=== PATIENT | female | born 1945 | race Caucasian/White ===

== ENCOUNTER 2020-09-21 11:26 | Outpatient (REF) | payer MEDICARE, SELFPAY ==
--- NOTE | ~2020-09-21 | MM_ITS ---
EXAMINATION: MM SCREENING DIGITAL BREAST TOMOSYNTHESIS, BILATERAL CLINICAL INFORMATION: Screening. Asymptomatic. The lifetime risk of breast cancer based on the Tyrer-Cuzick Model is 3%. COMPARISON: Mammography: 03/03/2019, 06/09/2016 TECHNIQUE: Digital breast tomosynthesis is performed in both the craniocaudal and mediolateral oblique views along with computer-aided detection (CAD). Synthesized 2D images are generated from the tomosynthesis. FINDINGS: There are scattered areas of fibroglandular density (ACR BI-RADS breast composition Category b). There are no significant masses, abnormal calcifications, or other abnormalities. Parenchymal pattern is similar to prior exams. No significant changes. MM/MM tomosynthesis screening BI IMPRESSION: No mammographic evidence of malignancy. ASSESSMENT: BI-RADS 1: Negative RECOMMENDATION: Routine annual mammography screening. This patient's information was entered into a reminder system with a target due date for their next mammogram.
== END 2020-09-21 11:27 | disposition home or self-care (01) ==
LOC: HO.MAMMO 11:26
PROVIDERS: Visit Provider Nurse Practitioner Family
DX: Z12.31 Encounter for screening mammogram for malignant neoplasm of breast (principal)
CPT/HCPCS: 77063; 77067

== ENCOUNTER 2020-10-26 09:57 | Outpatient (REF) | payer MEDICARE, SELFPAY ==
--- NOTE | ~2020-10-26 | MM_ITS ---
EXAMINATION: BONE DENSITOMETRY CLINICAL INDICATION: Other specified disorders of bone density. COMPARISON: Baseline BD dated 11/02/2009. TECHNIQUE: Using a [employer] DXA System (software version: 13.1) manufactured by [employer] dual-energy x-ray absorptiometry was performed of the lumbar spine and left hip. The images are of good technical quality. Summary results are attached. FINDINGS: AP SPINE L1-L4: Current: BMD 0.748 g/cm2, Z-score -1.2, T-score -3.6, osteoporosis, 16.6% decrease from baseline (<5% change is not significant). Baseline: BMD 0.897 g/cm2. LEFT FEMUR, NECK: Current: BMD 0.691 g/cm2, Z-score -0.2, T-score -2.5, osteoporosis. Baseline: BMD 0.789 g/cm2. LEFT FEMUR, TOTAL: Current: BMD 0.684 g/cm2, Z-score -0.4, T-score -2.6, osteoporosis, 11.5% decrease from baseline (<5% change is not significant). Baseline: BMD 0.773 g/cm2. IDENTIFIED RISK FACTORS: Menopause, tobacco use (current smoker), history of fracture (adult). HISTORY OF FRACTURE: Coccyx. MEDICATIONS: Calcium supplements or multivitamin. MM/XR DEXA axial skeleton IMPRESSION: 1. DIAGNOSIS: Osteoporosis based on the lowest T-score value of -3.6 in the lumbar spine applying World Health Organization criteria. 2. 10-YEAR FRACTURE RISK PREDICTION, FRAX: Major osteoporotic fracture (clinical spine, forearm, hip or shoulder) 42.5%. Hip fracture 32.4%. 3. Treatment Recommendations: NOF guidelines recommend consideration for treatment in postmenopausal women and men age 50 and older presenting with the following: -A hip or vertebral (clinical or morphometric) fracture. -T-score less than or equal to -2.5 at the femoral neck or spine after appropriate evaluation to exclude secondary causes. -Low bone mass at the hip or spine and a 10-year fracture probability by FRAX of greater than or equal to 3% for hip fracture or greater than or equal to 20% for major osteoporotic fracture based on the [place] adapted WHO algorithm. 4. Other Recommendations: All treatment decisions require clinical judgment and consideration of individual patient factors, including patient preferences, comorbidities, previous drug use, risk factors not captured in the FRAX model (e.g. frailty, falls, vitamin D deficiency, increased bone turnover, interval significant decline in bone density) and possible under or overestimation of fracture risk by FRAX. Additional medical evaluation for secondary cause of low bone mineral density may be appropriate. FUTURE SCAN RECOMMENDATION: People with diagnosed cases of osteoporosis or at high risk for fracture should have regular bone mineral density tests. For patients eligible for Medicare, routine testing is allowed once every 2 years. The testing frequency can be increased to one year for patients who have rapidly progressing disease, those who are receiving or discontinuing medical therapy to restore bone mass, or have additional risk factors.
== END 2020-10-26 09:58 | disposition home or self-care (01) ==
LOC: HO.MAMMO 09:57
PROVIDERS: PCP Nurse Practitioner Family; Visit Provider Nurse Practitioner Family
DX: Z13.820 Encounter for screening for osteoporosis (principal); M85.80 Other specified disorders of bone density and structure, unspecified site; Z78.0 Asymptomatic menopausal state; F17.200 Nicotine dependence, unspecified, uncomplicated; Z79.899 Other long term (current) drug therapy
CPT/HCPCS: 77080

== ENCOUNTER 2021-09-28 11:47 | Outpatient (REF) | payer MEDICARE, SELFPAY ==
--- NOTE | ~2021-09-28 | XR_ITS ---
EXAMINATION: XR LUMBOSACRAL SPINE CLINICAL INFORMATION: Low back pain. COMPARISON: 05/04/2019 lumbar spine radiographs. TECHNIQUE: Three views of the lumbosacral spine. FINDINGS: There is generalized osteopenia. Normal lumbar lordosis and spinal alignment is seen. The vertebral bodies are intact. Mild disc space narrowing is seen from L3-L4 and L5-S1. The soft tissues are unremarkable. Surgical clips overlie the left hemipelvis. XR/XR lumbar spine 2-3V IMPRESSION: 1. Generalized osteopenia. No acute fracture. 2. Mild degenerative disc disease from L3-L4 and L5-S1. No significant change.
[2021-09-28 13:56] LABS: Alanine Aminotransferase < 6 U/L (0-31); Albumin Level 4.4 g/dL (3.5-5.0); Alkaline Phosphatase 75 U/L (39-117); Anion Gap 14 (12-20); Aspartate Amino Transferase 14 U/L (5-31); Bilirubin Total 0.7 mg/dL (0.0-1.0); Blood Urea Nitrogen 11 mg/dL (9-16); Calcium 10.1 mg/dL (8.4-10.2); Carbon Dioxide 30 mmol/L (22-29); Chloride 101 mmol/L (96-108); Cholesterol 233 mg/dL; Estimated Glomerular Filt Rate 59; Glucose Fasting 89 mg/dL (60-99); HDL Cholesterol 61 mg/dL; LDL Cholesterol Calculated 147 mg/dl; Potassium 5.2 mmol/L (3.3-5.1); Sodium 140 mmol/L (135-145); Total Protein 7.4 g/dL (6.5-8.0); Triglycerides 129 mg/dL
[2021-09-28 14:16] LABS: TSH reflex Free T4 1.04 uIU/mL (0.32-4.0)
== END 2021-09-28 11:48 | disposition home or self-care (01) ==
LOC: HO.HMGCX 11:47
PROVIDERS: PCP Nurse Practitioner Family; Visit Provider Nurse Practitioner Family
DX: M54.50 Low back pain, unspecified (principal); M85.80 Other specified disorders of bone density and structure, unspecified site; F32.9 Major depressive disorder, single episode, unspecified; Z78.0 Asymptomatic menopausal state
CPT/HCPCS: 36415; 72100; 80053; 80061; 82306; 84443

== ENCOUNTER 2021-12-20 10:10 | Outpatient (REF) | payer MEDICARE, SELFPAY ==
--- NOTE | ~2021-12-20 | MR_ITS ---
EXAMINATION: MR BRAIN WITHOUT CONTRAST CLINICAL INFORMATION: Other amnesia COMPARISON: Brain MRI June 12, 2006. TECHNIQUE: Multiplanar, multisequence imaging of the brain was performed without intravenous contrast. FINDINGS: There is no acute infarction, hemorrhage, mass, or extra-axial fluid collection. Moderate patchy foci of T2/FLAIR hyperintensity is seen within the cerebral white matter, and central vinod, new compared with 2006 but nonspecific. There is a mild degree of brain parenchymal volume loss with commensurate prominence of ventricles and sulci, progressed compared with prior. The major arterial flow voids are preserved at the skull base. The orbital contents appear normal. MR/MR head/brain wo con IMPRESSION: No acute intracranial abnormality identified. New moderate T2/FLAIR hyperintensity in the cerebral white matter and central vinod which is nonspecific but may represent sequela of chronic microangiopathy. Mild degree of brain parenchymal volume loss, progressive compared with prior but without a regional or lobar predominant pattern of atrophy.
== END 2021-12-20 10:11 | disposition home or self-care (01) ==
LOC: HO.MRI 10:10
PROVIDERS: Visit Provider Nurse Practitioner Family
DX: R41.3 Other amnesia (principal)
CPT/HCPCS: 70551

== ENCOUNTER 2022-02-12 12:43 | Outpatient (REF) | payer MEDICARE, SELFPAY ==
--- NOTE | ~2022-02-12 | XR_ITS ---
EXAMINATION: RIGHT WRIST, RIGHT HUMERUS RIGHT FOREARM, RIGHT SHOULDER AND RIGHT ELBOW. CLINICAL INFORMATION: Fall, pain. COMPARISON: None TECHNIQUE: Right wrist 3 views. Right forearm 2 views. Right elbow 2 views. Right humerus 2 views and right shoulder 2 views. FINDINGS: Right wrist: There is no visible acute fracture, dislocation or subluxation seen. There is mild loss of first carpometacarpal joint space with periarticular spurring. The soft tissues are normal. Right forearm: 2 views of right forearm reveals no visible fracture, dislocation. The soft tissues are normal. Right elbow: There is no visible acute fracture, dislocation or subluxation seen. No abnormal joint effusion. Right humerus: There is comminuted right humeral neck fracture with lateral rotation of humeral head in relation to glenoid. However no dislocation suspected. XR/XR elbow RT 2V IMPRESSION: Mediated fracture right humeral neck without dislocation. The soft tissues are unremarkable. Rest the visualized right humerus, right elbow, right forearm and right wrist are unremarkable. There is mild osteopenia with degenerative disc changes first carpal metacarpal joint.
--- NOTE | ~2022-02-12 | XR_ITS ---
EXAMINATION: RIGHT WRIST, RIGHT HUMERUS RIGHT FOREARM, RIGHT SHOULDER AND RIGHT ELBOW. CLINICAL INFORMATION: Fall, pain. COMPARISON: None TECHNIQUE: Right wrist 3 views. Right forearm 2 views. Right elbow 2 views. Right humerus 2 views and right shoulder 2 views. FINDINGS: Right wrist: There is no visible acute fracture, dislocation or subluxation seen. There is mild loss of first carpometacarpal joint space with periarticular spurring. The soft tissues are normal. Right forearm: 2 views of right forearm reveals no visible fracture, dislocation. The soft tissues are normal. Right elbow: There is no visible acute fracture, dislocation or subluxation seen. No abnormal joint effusion. Right humerus: There is comminuted right humeral neck fracture with lateral rotation of humeral head in relation to glenoid. However no dislocation suspected. XR/XR forearm RT 2V IMPRESSION: Mediated fracture right humeral neck without dislocation. The soft tissues are unremarkable. Rest the visualized right humerus, right elbow, right forearm and right wrist are unremarkable. There is mild osteopenia with degenerative disc changes first carpal metacarpal joint.
--- NOTE | ~2022-02-12 | XR_ITS ---
EXAMINATION: RIGHT WRIST, RIGHT HUMERUS RIGHT FOREARM, RIGHT SHOULDER AND RIGHT ELBOW. CLINICAL INFORMATION: Fall, pain. COMPARISON: None TECHNIQUE: Right wrist 3 views. Right forearm 2 views. Right elbow 2 views. Right humerus 2 views and right shoulder 2 views. FINDINGS: Right wrist: There is no visible acute fracture, dislocation or subluxation seen. There is mild loss of first carpometacarpal joint space with periarticular spurring. The soft tissues are normal. Right forearm: 2 views of right forearm reveals no visible fracture, dislocation. The soft tissues are normal. Right elbow: There is no visible acute fracture, dislocation or subluxation seen. No abnormal joint effusion. Right humerus: There is comminuted right humeral neck fracture with lateral rotation of humeral head in relation to glenoid. However no dislocation suspected. XR/XR humerus RT IMPRESSION: Mediated fracture right humeral neck without dislocation. The soft tissues are unremarkable. Rest the visualized right humerus, right elbow, right forearm and right wrist are unremarkable. There is mild osteopenia with degenerative disc changes first carpal metacarpal joint.
--- NOTE | ~2022-02-12 | XR_ITS ---
EXAMINATION: RIGHT WRIST, RIGHT HUMERUS RIGHT FOREARM, RIGHT SHOULDER AND RIGHT ELBOW. CLINICAL INFORMATION: Fall, pain. COMPARISON: None TECHNIQUE: Right wrist 3 views. Right forearm 2 views. Right elbow 2 views. Right humerus 2 views and right shoulder 2 views. FINDINGS: Right wrist: There is no visible acute fracture, dislocation or subluxation seen. There is mild loss of first carpometacarpal joint space with periarticular spurring. The soft tissues are normal. Right forearm: 2 views of right forearm reveals no visible fracture, dislocation. The soft tissues are normal. Right elbow: There is no visible acute fracture, dislocation or subluxation seen. No abnormal joint effusion. Right humerus: There is comminuted right humeral neck fracture with lateral rotation of humeral head in relation to glenoid. However no dislocation suspected. XR/XR shoulder RT min 2V IMPRESSION: Mediated fracture right humeral neck without dislocation. The soft tissues are unremarkable. Rest the visualized right humerus, right elbow, right forearm and right wrist are unremarkable. There is mild osteopenia with degenerative disc changes first carpal metacarpal joint.
--- NOTE | ~2022-02-12 | XR_ITS ---
EXAMINATION: RIGHT WRIST, RIGHT HUMERUS RIGHT FOREARM, RIGHT SHOULDER AND RIGHT ELBOW. CLINICAL INFORMATION: Fall, pain. COMPARISON: None TECHNIQUE: Right wrist 3 views. Right forearm 2 views. Right elbow 2 views. Right humerus 2 views and right shoulder 2 views. FINDINGS: Right wrist: There is no visible acute fracture, dislocation or subluxation seen. There is mild loss of first carpometacarpal joint space with periarticular spurring. The soft tissues are normal. Right forearm: 2 views of right forearm reveals no visible fracture, dislocation. The soft tissues are normal. Right elbow: There is no visible acute fracture, dislocation or subluxation seen. No abnormal joint effusion. Right humerus: There is comminuted right humeral neck fracture with lateral rotation of humeral head in relation to glenoid. However no dislocation suspected. XR/XR wrist RT min 3V IMPRESSION: Mediated fracture right humeral neck without dislocation. The soft tissues are unremarkable. Rest the visualized right humerus, right elbow, right forearm and right wrist are unremarkable. There is mild osteopenia with degenerative disc changes first carpal metacarpal joint.
== END 2022-02-12 12:44 | disposition home or self-care (01) ==
LOC: HO.HMGCX 12:43
PROVIDERS: PCP Nurse Practitioner Family; Visit Provider Internal Medicine
DX: S40.021A Contusion of right upper arm, initial encounter (principal); W18.30XA Fall on same level, unspecified, initial encounter; Y93.9 Activity, unspecified; Y92.9 Unspecified place or not applicable; Y99.8 Other external cause status
CPT/HCPCS: 73030; 73060; 73070; 73090; 73110

== ENCOUNTER → 2022-02-16 14:40 | Outpatient (BNVA) | payer MEDICARE, SELFPAY | PROVIDERS: PCP Nurse Practitioner Family; Visit Provider Physician Assistant | DX: S42.211A Unspecified displaced fracture of surgical neck of right humerus, initial encounter for closed fracture (principal) | CPT/HCPCS: 99202 ==

== ENCOUNTER → 2022-02-26 09:25 | Outpatient (REF) | payer MEDICARE, SELFPAY ==
--- NOTE | 2022-02-26 09:28 | CA_ITS ---
Transthoracic Echocardiogram Patient (Last, First, Middle): Nella Garcia, Gender: Female Date of : 1945 Age: 76 Procedure Date: 02/26/2022 Procedure Type: Transthoracic Echocardiogram Location: OP Height: 157.48 cm Weight: 44.45 kg BSA: 1.41 m2 Heart Rate: bpm BP: 124 / 82 mmHg Commercial Project Manager: CLARENCE Referring MD: Mir Brady [facility] Symptoms: R01.1 - Cardiac murmur, unspecified Study Quality: Adequate ECG Rhythm: Sinus Conclusions: - The left ventricular systolic function is normal. The calculated ejection fraction is 69% by biplane method. - There is mild calcification of the aortic valve. - There is mild anterior mitral leaflet thickening. There is mild mitral annular calcification. Findings Left Ventricle Normal left ventricular cavity size. There is normal left ventricular wall thickness. The left ventricular systolic function is normal. The calculated ejection fraction is 69% by biplane method. There is no evidence of regional wall motion abnormalities. Diastolic function is normal for age. Right Ventricle Normal right ventricular cavity size and systolic function. Atria Both atria are normal in size. There is a prominent eustachian valve. (normal variant). Aortic Valve There is a normal trileaflet aortic valve. There is mild calcification of the aortic valve. There is no aortic valve stenosis. There is no aortic valve regurgitation. Mitral Valve There is mild anterior mitral leaflet thickening. There is mild mitral annular calcification. There is trace mitral valve regurgitation. There is no mitral valve stenosis. Pulmonic Valve The pulmonic valve is likely normal. Tricuspid Valve Normal tricuspid valve structure. There is trace tricuspid valve regurgitation. The pulmonary artery systolic pressure is normal. Great Vessels The aortic annulus and sinuses of valsalva are normal in size. Venous The inferior vena cava is normal in size and collapses greater than 50% with inspiration. Pericardium/Pleural There is no evidence of pericardial effusion. Prior Study Comparison No prior study available for comparison. Measurements 2D Linear Measurements IVSd: 0.88 0.6-0.9/0.6-1.0 cm LVIDd: 3.49 3.9-5.3/4.2-5.9 cm LVIDd Index: 2.48 2.4-3.2/2.2-3.1 cm/m2 LVIDs: 2.52 2.0-3.6 cm LVPWd: 0.94 0.7-1.1 cm LA Diam: 2.80 2.7-3.8/3.0-4.0 cm LAIDs Index: 1.99 1.5-2.3 cm/m2 LV Mass: 111.85 67-162/88-224 g LV Mass Index: 79.33 43-95/49-115 g/m2 LVOT Diam: 1.80 3.0+(-)1.3 cm 2D Systolic Function EF 4C: 67.30 >55% EF 2C: 68.40 >55% EF BiP: 69.20 >55% Mitral Valve MV Pk E: 0.84 MV PK A: 0.97 MV Decel Time: 293.00 E/A: 0.90 E'Lateral: 9.68 E'Medial: 7.07 E/E' Med: 11.80 E/E' Lat: 8.60 PHT: 86.00 MVA PHT: 2.56 Decel [place]: 2.85 Aortic Valve AoV Pk Sree: 1.42 AoV Mn Sree: 0.93 AoV VTI: 0.29 AoV Pk Grad: 8.00 Aov Mn Grad: 4.00 DAVID Cont.VTI: 1.98 LVOT LVOT Pk Sree: 1.08 LVOT Mn Sree: 0.68 LVOT VTI: 0.23 LVOT Pk Grad: 5.00 LVOT Mn Grad: 2.00 LVOT Diam: 1.80 LVOT Area: 2.54 Diastolic Function MV Pk E: 0.84 MV Pk A: 0.97 E/A: 0.90 E'Medial: 7.07 E/E' Med: 11.80 E' Laterial: 9.68 E/E' Lat: 8.60 Right Ventricle TAPSE (mm): 23.60 TVS' Sree: 12.60 Tricuspid Valve TR Pk Sree: 2.20 TR Pk Grad: 19.00 RA Press: 3.00 RVSP: 22.00 Great Vessels Aorta Sinus of Valsalva: 3.21 2.0-3.[address] [place]: 2.60 1.7-3.4 cm Updated in Other Vendor System with Status of Final Ziggy Aquino MD electronically signed on 02/26/2022 11:59:58 AM with status of Final
== END ==
LOC: HO.CARD 09:25
PROVIDERS: PCP Nurse Practitioner Family; Visit Provider Nurse Practitioner Family
DX: R01.1 Cardiac murmur, unspecified (principal)
CPT/HCPCS: 93306

== ENCOUNTER 2022-03-01 08:13 | Outpatient (REF) | payer MEDICARE, SELFPAY ==
--- NOTE | ~2022-03-01 | XR_ITS ---
EXAMINATION: XR SHOULDER, RIGHT CLINICAL INFORMATION: Fracture. COMPARISON: Previous x-ray 02/12/2022. TECHNIQUE: Two views of the right shoulder. FINDINGS: There is a comminuted fracture of the right proximal humerus. There is impaction, valgus angulation and slight anterior displacement of the humeral shaft with respect to the humeral head on the Y view. Alignment appears unchanged. There may be some rotation of the humeral head with respect to the glenoid. There is overlying soft tissue swelling. XR/XR shoulder RT min 2V IMPRESSION: Comminuted impacted displaced right proximal humerus fracture.
== END 2022-03-01 08:14 | disposition home or self-care (01) ==
LOC: HO.HOSX 08:13
PROVIDERS: Visit Provider Physician Assistant
DX: S42.211D Unspecified displaced fracture of surgical neck of right humerus, subsequent encounter for fracture with routine healing (principal)
CPT/HCPCS: 73030; 99212

== ENCOUNTER 2022-03-15 07:53 | Outpatient (REF) | payer MEDICARE, SELFPAY ==
--- NOTE | ~2022-03-15 | XR_ITS ---
EXAMINATION: XR HUMERUS, RIGHT CLINICAL INFORMATION: Undisplaced fracture of surgical neck of right humerus COMPARISON: None TECHNIQUE: AP and lateral views of the right humerus. FINDINGS: There is displaced comminuted fracture neck of the humerus. Glenohumeral alignment is maintained with mild rotation of the humeral head. There is dystrophic soft tissue calcification along the humeral head. No other bony abnormality seen. XR/XR humerus RT IMPRESSION: No significant change in the comminuted right humeral neck fracture with displacement.
== END 2022-03-15 07:54 | disposition home or self-care (01) ==
LOC: HO.HOSX 07:53
PROVIDERS: Visit Provider Physician Assistant
DX: S42.211A Unspecified displaced fracture of surgical neck of right humerus, initial encounter for closed fracture (principal)
CPT/HCPCS: 73060; 99212

== ENCOUNTER 2022-04-18 11:00 | Outpatient (RCR) | payer MEDICARE, SELFPAY ==
--- NOTE | 2022-03-28 12:48 | MHC.PT.EP ---
[facility] [place] [facility] [place] [facility] [place] Office [address] Fang Weller [address] [phone] F: [phone] F: [phone] F: [phone] F: [phone] Physical Therapy Plan of Care Date of Evaluation: Date of Surgery: n/a Diagnosis: fx of R humerus Assessment: Patient is a 76 year old female presenting to PT s/p fx of R humerus sustained on 02/11/2022 due to falling down the stairs. She presents today with impairments in pain, ROM, shoulder strength, posture. 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 Clinical presentation today is most consistent with signs and sx associated with Fx of R humerus and pt will benefit from skilled PT to address the following problems and impairments noted upon evaluation: pain, ROM, shoulder strength, posture. These problems limit the patient with the following functional activities: ADLs, reaching, lifting. The prescribed treatment plan of care is medically necessary. Co-morbidities of osteopenia were identified and taken into considerations of plan of care. Pt was educated on HEP, role of PT, prognosis, POC. Frequency and Duration: The patient will be seen 2 x week x 12 weeks Short Term Goals: Pt will demonstrate full elbow ROM in 6 weeks with minimal to no pain. Pt will demonstrate shoulder PROM to 110 in 6 weeks. Pt will demonstrate improved postural awareness by sitting with biomechanically correct posture without cues throughout session to improve overall postural function in 3 weeks. Pt will demonstrate improved SPADI by 13 points in 6 weeks. Longterm Goals: Pt will demonstrate at least 3/5 strength in 8 weeks. Pt will demonstrate AROM to 90 in 8 weeks. Pt will demonstrate AROM to 110 in 10 weeks for return to PLOF with ADLs. Pt will demonstrate shoulder MMT strength at least 4/5 in 12 weeks for return to PLOF with ADLs. Pt will demonstrate improved SPADI score by additional 13 points in 12 weeks for return to prior functional mobility. Treatment Plan: Modalities to reduce pain, spasms and effusion. Manual therapy to restore motion and function. Therapeutic exercise to improve strength and flexibility. Neuromuscular re-education for posture and balance. Therapeutic activities to return to functional activities of daily living. Electronically signed by: Phyllis Rascon, PT, DPT, ATC Please sign and return to therapist. Thank you for your referral.
--- NOTE | 2022-05-23 08:56 | MHC.PT.DC ---
[facility] [place] [facility] [place] [facility] [place] Office [address] Fang Weller [address] [phone] F: [phone] F: [phone] F: [phone] F: [phone] Physical Therapy Discharge Report Diagnosis: fx of R humerus Date of Surgery: n/a Date of Evaluation: 03/28/22 Date of Discharge: 05/23/22 Treatments to Date: 3 Cancellations to Date: 1 No Shows to Date: 1 Discharge Status: Visit Non-compliance Discharge Summary: Pt no showed her last scheduled PT appointment and has not reached out to schedule in >30 days. Pt to be d/c per policy. Pt status unknown at this time. Electronically signed by: Phyllis Rascon, PT, DPT, ATC Please sign and return to therapist. Thank you for your referral.
== END 2022-05-23 08:57 | disposition home or self-care (01) ==
LOC: HO.PTCHIC 11:00
PROVIDERS: PCP Nurse Practitioner Family; Visit Provider Physician Assistant
DX: S42.211A Unspecified displaced fracture of surgical neck of right humerus, initial encounter for closed fracture (principal); S42.291A Other displaced fracture of upper end of right humerus, initial encounter for closed fracture
CPT/HCPCS: 97110; 97140; 97162

== ENCOUNTER 2022-04-26 07:49 | Outpatient (REF) | payer MEDICARE, SELFPAY | END 2022-04-26 07:50 | disposition home or self-care (01) | LOC: HO.HOSX 07:49 | PROVIDERS: Visit Provider Physician Assistant | DX: Z13.89 Encounter for screening for other disorder (principal) ==

== ENCOUNTER 2022-12-10 19:59 | Emergency (ER) | payer MEDICARE, SELFPAY ==
--- NOTE | ~2022-12-10 | XR_ITS ---
EXAMINATION: XR KNEE, RIGHT CLINICAL INFORMATION: Pain COMPARISON: None available. TECHNIQUE: Four views of the right knee. FINDINGS: Moderate-sized suprapatellar knee joint effusion. Mild prepatellar soft tissue swelling. There is subtle cortical step-off irregularity along the posterior aspect of the medial tibial plateau and medial tibial metaphysis concerning for a subtle medial tibial plateau fracture in this setting. Clinical correlation would be recommended. Prominent vascular calcification seen. XR/XR knee RT 4V IMPRESSION: Moderate-sized suprapatellar knee joint effusion. Subtle cortical step-off along the posterior aspect of the medial tibial plateau and medial tibial metaphysis concerning for a subtle medial tibial plateau fracture in this setting.
[2022-12-10 20:00] VITALS: BP 183/83; PULSE 80; RESP 18; TEMP 36.2; O2SAT 97; BMI 18.0
--- NOTE | 2022-12-10 20:04 | ED_ITS ---
HPI - General Adult General Chief complaint: Extremity Injury, Lower <Navi Thornton - Last Filed: 12/10/22 22:16> Stated complaint: fell right knee pain swelling <Navi Thornton - Last Filed: 12/10/22 22:16> Time Seen by Provider: 12/10/22 21:47 <Navi Thornton - Last Filed: 12/10/22 22:16> Source: patient, family, RN notes reviewed and old records reviewed <Navi Thornton - Last Filed: 12/10/22 22:16> Mode of arrival: wheelchair <Navi Thornton - Last Filed: 12/10/22 22:16> Limitations: no limitations <Navi Thornton - Last Filed: 12/10/22 22:16> History of Present Illness HPI narrative: 77-year-old female past medical history significant for osteopenia, depression, hyperlipidemia presents for evaluation of right knee pain. Patient reports that she slipped down 4 steps yesterday injuring her right knee She reports significant swelling and difficulty bending or walking on the leg The patient states that she did bump her head slightly but denies any headaches, loss of consciousness. No blurry vision no nausea vomiting lightheadedness She is not on anticoagulation No other injuries from the fall <Navi Thornton - Last Filed: 12/10/22 22:16> Related Data Home medications: Home Medications Medication Instructions Recorded Confirmed multivitamin (Daily Multi-Vitamin 1 tab PO DAILY 09/28/21 05/01/22 tablet) Previous Rx's Medication Instructions Recorded citalopram 10 mg tablet 10 mg PO BEDTIME 90 days #90 tabs 04/15/22 oxycodone-acetaminophen 5 mg-325 1 tab PO DAILY PRN pain 14 days 05/01/22 mg tablet (Percocet) #14 tabs atorvastatin 10 mg tablet 10 mg PO BEDTIME 90 days #90 tabs 05/03/22 meloxicam 15 mg tablet 15 mg PO DAILY PRN pain 30 days 06/24/22 #30 tabs memantine 14 mg capsule 14 mg PO DAILY 90 days #90 ea 09/03/22 sprinkle,extended release 24hr oxycodone 5 mg tablet 5 mg PO Q6H PRN severe pain (scale 12/10/22 score 7-10) #20 tabs oxycodone 5 mg tablet 5 mg PO Q6H PRN pain (scale score 12/11/22 7-10) #20 tabs <Navi O Last Filed: 12/10/22 22:16> Allergies/adverse reactions: Allergies Allergy/AdvReac Type Severity Reaction Status Date / Time No Known Allergies Allergy Verified 05/01/22 10:06 [No Known Allergies*] <Navi Last Filed: 12/10/22 22:16> Review of Systems Constitutional: Constitutional: Denies headache(s) <Navi O Last Filed: 12/10/22 22:16> Eyes: Eyes: Denies blurry vision < Filed: 12/10/22 22:16> ENT: Denies vertigo and Denies headache(s) < Last Filed: 12/10/22 22:16> Cardiovascular: Cardiovascular: Denies syncope, Denies lightheadedness and Denies dyspnea <Navi Last Filed: 12/10/22 22:16> Respiratory: Respiratory: Denies dyspnea <Navi Filed: 12/10/22 22:16> Gastrointestinal: Gastrointestinal: Denies abdominal pain <Navi Filed: 12/10/22 22:16> Musculoskeletal: Musculoskeletal: Reports arthralgias, Reports joint swelling and Reports limited range of motion <Navi O Last Filed: 12/10/22 22:16> Neurologic: Denies vertigo, Denies syncope, Denies headache(s) and Denies focal weakness <Navi O Last Filed: 12/10/22 22:16> [facility] Past Medical History Medical History: Medical History Depression Hx of osteopenia <Navi O Last Filed: 12/10/22 22:16> Family History Family History: Family History Father No problems noted. 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 Cognitive needs: No Hearing needs: No Vision needs: No <Navi Thornton - Last Filed: 12/10/22 22:16> Physical Exam ED Vital Signs: Vital Signs - 24 hr 12/10/22 20:00 Temperature 97.2 F Pulse Rate 80 Respiratory Rate 18 Blood Pressure 183/83 H Pulse Oximetry 97 Oxygen Delivery Method Room Air BMI result Body Mass Index 18.0 <Navi Thornton - Last Filed: 12/10/22 22:16> Vital Signs - 24 hr 12/10/22 20:00 Temperature 97.2 F Pulse Rate 80 Respiratory Rate 18 Blood Pressure 183/83 H Pulse Oximetry 97 Oxygen Delivery Method Room Air BMI result Body Mass Index 18.0 <Nik Castañeda - Last Filed: 12/11/22 10:26> Const General: healthy appearing, comfortable, no acute distress, alert and awake <Navi Thornton - Last Filed: 12/10/22 22:16> Nutritional Appearance: well nourished <Navi Thornton - Last Filed: 12/10/22 22:16> Orientation/consciousness: patient oriented x3 <Navi Thornton - Last Filed: 12/10/22 22:16> HENMT Head: Yes normocephalic and Yes atraumatic <Navi Thornton - Last Filed: 12/10/22 22:16> Eyes Eyelids: Yes eyelids normal <Navi Thornton - Last Filed: 12/10/22 22:16> Conjunctivae: conjunctivae normal <Navi Thornton - Last Filed: 12/10/22 22:16> Sclerae: sclerae normal <Navi Thornton - Last Filed: 12/10/22 22:16> Corneas: corneas normal <Navi BurchAdriel - Last Filed: 12/10/22 22:16> Pupils: Equal, round and reactive pupils present <Navi [place] - Last Filed: 12/10/22 22:16> EOM: EOMs intact bilaterally <Navi OAdriel - Last Filed: 12/10/22 22:16> Neck Other: No cervical spine tenderness <Navi OAdriel - Last Filed: 12/10/22 22:16> Neck: Yes full ROM <Navi O Last Filed: 12/10/22 22:16> Resp Effort & Inspection: normal respiratory effort, able to speak in complete sentences, no audible wheezes and not labored <Navi O Last Filed: 12/10/22 22:16> Auscultation: clear to auscultation bilaterally <Navi O Last Filed: 12/10/22 22:16> Cardio Rate: regular rate <Navi [place] - Last Filed: 12/10/22 22:16> Rhythm: regular rhythm <Navi Last Filed: 12/10/22 22:16> GI Inspection: No distended <Navi O Last Filed: 12/10/22 22:16> Palpation (GI): Soft to palpation, not firm, nontender, no guarding and not rigid <Navi O Last Filed: 12/10/22 22:16> Auscultation: normoactive bowel sounds <Navi OAdriel - Last Filed: 12/10/22 22:16> Skin General skin exam: no rashes or lesions noted and elasticity normal <Navi OAdriel - Last Filed: 12/10/22 22:16> Neuro General: patient oriented x3 <Navi O Last Filed: 12/10/22 22:16> Cranial nerves: Yes CN's II-XII intact bilaterally, Yes Equal, round and reactive pupils present and Yes Bilaterally intact EOM present <Navi OAdriel - Last Filed: 12/10/22 22:16> Cognition (Neuro): normal cognition <Navi OAdriel - Last Filed: 12/10/22 22:16> Extrem Other: Patient has moderate right knee joint effusion. She is tender to the anterior, inferior aspect of the right knee. The patellar tendon appears palpable. The patient has limited range of motion with flexion is able to fully extend the leg. The patient is able to raise the right lower extremity off the bed <Navi Thornton - Last Filed: 12/10/22 22:16> Course Course Course Narrative: GAE- 77-year-old female presents for evaluation right knee pain after a mechanical fall last night. Plan for x-ray of right knee <Navi Thornton - Last Filed: 12/10/22 22:16> GAE- 77-year-old female presents for evaluation right knee pain after a mechanical fall last night. Plan for x-ray of right knee 10:26 12/11/2022 patient call prescription was not received by pharmacy will be sent to a different pharmacy at this time for oxycodone 5 mg q.6 20 tabs <Nik Castañeda - Last Filed: 12/11/22 10:26> Medications Administered Discontinued Medications Generic Name Dose Route Start Last Admin Trade Name Freq PRN Reason Stop Dose Admin Oxycodone HCl 5 mg 12/10/22 21:50 12/10/22 22:42 Oxycodone Hcl Immed Release 5 Mg Tablet PO 12/10/22 21:51 5 mg ONCE ONE Administration <Navi Thornton - Last Filed: 12/10/22 22:16> Medications Administered Discontinued Medications Generic Name Dose Route Start Last Admin Trade Name Freq PRN Reason Stop Dose Admin Oxycodone HCl 5 mg 12/10/22 21:50 12/10/22 22:42 Oxycodone Hcl Immed Release 5 Mg Tablet PO 12/10/22 21:51 5 mg ONCE ONE Administration <Nik Castañeda - Last Filed: 12/11/22 10:26> Medical Decision Making Medical Decision Making MDM Narrative: 77-year-old female presents for evaluation of right knee pain after a fall. X-ray shows suspicion for subtle tibial plateau fracture. There is no suspicion for compartment syndrome, patient has soft compartments, good distal pulses and no loss of sensation to the right lower extremity. I discussed the case with Orthopedics, Dr. Imer Pinon. He agrees with nonweightbearing, knee immobilizer, crutches and he will follow-up with the patient as an outpatient. I discussed all findings with the patient and importance of being nonweightbearing <Navi Thornton Last Filed: 12/10/22 22:16> Differential Diagnosis Tibial plateau fracture Knee sprain Contusion Ligamentous injury <Navi Mike Last Filed: 12/10/22 22:16> Consult Healthcare Provider Management of the patient was discussed with: Javascript Front End Developer (Orthopedics) <Navi Mike Last Filed: 12/10/22 22:16> Independent Interpretation I performed an independent interpretation of an: Plain X-Ray <Navi O Filed: 12/10/22 22:16> Discharge Plan Discharge Clinical Impression: Right medial tibial plateau fracture <Navirodolfo Thornton Filed: 12/10/22 22:16> Patient Disposition: Home, Self-Care <Navi Thornton Filed: 12/10/22 22:16> Instructions: Leg Fracture (ED) <Navi Thornton Filed: 12/10/22 22:16> Additional Instructions: Your x-ray shows a fracture of the right tibial plateau. This is a weight-bearing bone, so it is important that you do not put any weight on your right leg. Keep the knee immobilizer on during the day but you may remove it at night to sleep Apply ice to the area when possible over the next 2-3 days Follow-up with orthopedics at the number provided You may use ibuprofen and Tylenol for pain You may use oxycodone for more severe, breakthrough pain <Navi Thornton Last Filed: 12/10/22 22:16> Prescriptions: New oxycodone 5 mg tablet 5 mg PO Q6H PRN (Reason: severe pain (scale score 7-10)) Qty: 20 0RF Rx Instructions: Partial Fill upon patient request. May cut tablets in half oxycodone 5 mg tablet 5 mg PO Q6H PRN (Reason: pain (scale score 7-10)) Qty: 20 0RF Rx Instructions: Partial Fill upon patient request. No Action citalopram 10 mg tablet 10 mg PO BEDTIME 90 Days Qty: 90 1RF atorvastatin 10 mg tablet 10 mg PO BEDTIME 90 Days Qty: 90 0RF meloxicam 15 mg tablet 15 mg PO DAILY PRN (Reason: pain) 30 Days Qty: 30 2RF memantine 14 mg capsule,sprinkle,ER 24hr 14 mg PO DAILY 90 Days Qty: 90 0RF oxycodone-acetaminophen [Percocet] 5-325 mg tablet 1 tab PO DAILY PRN (Reason: pain) 14 Days Qty: 14 0RF Rx Instructions: Partial Fill upon patient request. multivitamin [Daily Multi-Vitamin] Tablet 1 tab PO DAILY <Navi Thornton - Last Filed: 12/10/22 22:16> Referrals: Imer Pinon MD [Physician] - (right tibial plateau fx) <Navi Thornton - Last Filed: 12/10/22 22:16> Interventions: ED Discharge Assessment Last Done: 12/10/22 22:51 <Navi Thornton - Last Filed: 12/10/22 22:16> Discharge Date/Time: 12/10/22 22:51 <Navi Thornton - Last Filed: 12/10/22 22:16>
[2022-12-10] MEDS: oxyCODONE HCl Immed Release 5 MG TABLET PO (22:42)
== END 2022-12-10 22:51 | disposition home or self-care (01) ==
PROVIDERS: Emergency Provider Internal Medicine; PCP Nurse Practitioner Family
DX: S82.141A Displaced bicondylar fracture of right tibia, initial encounter for closed fracture (principal); M25.561 Pain in right knee; W10.9XXA Fall (on) (from) unspecified stairs and steps, initial encounter; Y93.79 Activity, other specified sports and athletics; Y92.9 Unspecified place or not applicable; Y99.9 Unspecified external cause status; F17.210 Nicotine dependence, cigarettes, uncomplicated; Z71.6 Tobacco abuse counseling; Z79.899 Other long term (current) drug therapy
CPT/HCPCS: 73564; 99283

== ENCOUNTER → 2022-12-21 10:24 | Outpatient (BNVA) | payer MEDICARE, SELFPAY | PROVIDERS: PCP Nurse Practitioner Family; Visit Provider Physician Assistant | DX: S82.141A Displaced bicondylar fracture of right tibia, initial encounter for closed fracture (principal) | CPT/HCPCS: 99202 ==

== ENCOUNTER 2022-12-25 13:24 | Outpatient (REF) | payer MEDICARE, SELFPAY ==
--- NOTE | ~2022-12-25 | CT_ITS ---
EXAMINATION: CT KNEE WITHOUT CONTRAST, RIGHT CLINICAL INFORMATION: Displaced bicondylar fracture of the right tibia, initial encounter. COMPARISON: Radiographs dated 12/10/2022 TECHNIQUE: Multidetector volumetric imaging was obtained through the right knee without contrast. Multiplanar reformatted images in coronal and sagittal orientations were submitted. This CT examination was performed using dose optimization techniques as appropriate, variously including the following: *Automated exposure control *Adjustment of mA and/or kV according to patient size (this includes techniques or standardized protocols for targeted exams where dose is matched to indication/reason for exam; i.e. extremities or head) *Use of iterative reconstruction technique DLP: 186 mGy-cm FINDINGS: There is a comminuted and mildly depressed fracture of the medial tibial plateau with an oblique coronal/sagittal fracture line extending from the medial cortex to the posterior cortex. Articular cortical depression is evident at the posteromedial half of the medial tibial plateau with step-off of 2 mm. Periosteal bone formation is present along the fracture margins anteromedially and posteriorly. There is surrounding periosteal edema in this region. Margins of the trabecular fracture are sclerotic, likely due to early changes of healing. Laterally, the fracture line extends onto the medial tibial spine posteriorly. No involvement of the lateral tibial plateau. No additional fractures are identified. The proximal fibula, distal femur, and patella are intact. Joint spaces appear relatively well-preserved. Moderate size joint effusion. Surrounding soft tissues are edematous and swollen. Calcific atherosclerosis is present in the popliteal and runoff arteries. CT/CT knee RT wo IV con IMPRESSION: 1. Comminuted and mildly depressed fracture of the medial tibial plateau with 2 mm articular cortical step-off at the posterior medial half of the medial tibial plateau, consistent with a Schatzker type IV fracture. 2. Moderate joint effusion.
== END 2022-12-25 13:25 | disposition home or self-care (01) ==
LOC: HO.CT 13:24
PROVIDERS: Visit Provider Physician Assistant
DX: S82.141A Displaced bicondylar fracture of right tibia, initial encounter for closed fracture (principal); X58.XXXA Exposure to other specified factors, initial encounter; Y93.9 Activity, unspecified; Y92.9 Unspecified place or not applicable; Y99.9 Unspecified external cause status
CPT/HCPCS: 73700

== ENCOUNTER 2023-01-04 09:28 | Outpatient (REF) | payer MEDICARE, SELFPAY ==
--- NOTE | ~2023-01-04 | XR_ITS ---
EXAMINATION: XR KNEE, RIGHT CLINICAL INFORMATION: Pain in the right knee, follow-up fracture COMPARISON: 12/10/[address] scan of the knee from 12/25/2022 TECHNIQUE: Four views of the right knee. FINDINGS: There is no fractures present medial tibial plateau which is still visualized with oblique lucency. There is soft tissue calcifications medially most likely related to periosteal reaction or healing. There is small joint effusion is still present. Lines and no new fractures identified. XR/XR knee RT 2V IMPRESSION: Healing of medial tibial plateau fracture. Small joint effusion. No new fractures seen.
== END 2023-01-04 09:29 | disposition home or self-care (01) ==
LOC: HO.HOSX 09:28
PROVIDERS: PCP Nurse Practitioner Family; Visit Provider Physician Assistant
DX: S82.141A Displaced bicondylar fracture of right tibia, initial encounter for closed fracture (principal); X58.XXXA Exposure to other specified factors, initial encounter; Y93.9 Activity, unspecified; Y92.9 Unspecified place or not applicable; Y99.9 Unspecified external cause status
CPT/HCPCS: 73560; 99212

== ENCOUNTER 2023-02-11 06:51 | Outpatient (REF) | payer MEDICARE, SELFPAY | END 2023-02-11 06:52 | disposition home or self-care (01) | LOC: HO.HOSX 06:51 | PROVIDERS: Visit Provider Physician Assistant | DX: Z13.89 Encounter for screening for other disorder (principal) ==

== ENCOUNTER 2023-06-28 09:19 | Emergency (ER) | payer MEDICARE, SELFPAY ==
--- NOTE | ~2023-06-28 | XR_ITS ---
EXAMINATION: XR TOES, RIGHT CLINICAL INFORMATION: Right second toe pain. COMPARISON: None available. TECHNIQUE: 3 views of the right toes were obtained. FINDINGS: Soft tissues are swollen in the forefoot, particularly at the second toe. There is hallux valgus with a hammertoe deformity at the second toe. There is abnormal morphology of the proximal phalangeal head which may be due to a fracture. This is age indeterminant. Otherwise, no acute fractures are identified. Bones are osteopenic. There is osteoarthritis in the interphalangeal joints, most notably at the DIP joints of the second and third toes. Mild osteoarthritis is present at the first MTP joint and in the imaged portion of the midfoot. No erosions are identified. XR/XR toe RT min 2V IMPRESSION: 1. Abnormal morphology of the second proximal phalangeal head which may be due to a fracture. Assessment of this region is limited by overlying structures. Recommend correlation for point tenderness in this region. No appreciable findings of osteomyelitis, though sensitivity is limited. Consider correlation with MRI if this is a clinical concern. 2. Soft tissue swelling in the second toe. 3. Hallux valgus and hammertoe deformity. Multifocal osteoarthritis.
[2023-06-28 09:38] VITALS: BP 157/68; PULSE 73; RESP 18; TEMP 36.8; O2SAT 98; BMI 17.6
--- NOTE | 2023-06-28 10:21 | ED.GENADULT ---
HPI - General Adult General Chief complaint: Extremity Injury, Lower Stated complaint: R toe evaluation? Time Seen by Provider: 06/28/23 09:46 Source: patient and RN notes reviewed Mode of arrival: ambulatory Limitations: no limitations History of Present Illness HPI narrative: This is a 77-year-old female, with a history of hypertension, presenting to the emergency department with complaints of right 2nd toe pain. Patient states that she was seen by 2 podiatrists as well as her primary care physician. They state that she needs to have this 2nd toe cut off and was told to go to the emergency room to have this toe removed. She states that she was started on Keflex which she has been taking as directed. The redness has since resolved and is feeling much better. She states that she only has pain with ambulation. Denies any fevers or chills. Denies any recent injury to her foot or toe. No other complaints or concerns at this time. MD complaint: Second toe pain Onset (ago): day(s) Radiation: non-radiation Quality: aching Pain Consistency: constant Relieving factors: none Exacerbating factors: none Associated symptoms: denies other symptoms Treatments prior to arrival: none Related Data Home Medications Medication Instructions Recorded Confirmed multivitamin (Daily Multi-Vitamin 1 tab PO DAILY 09/28/21 05/01/22 tablet) Previous Rx's Medication Instructions Recorded oxycodone-acetaminophen 5 mg-325 1 tab PO DAILY PRN pain 14 days 05/01/22 mg tablet (Percocet) #14 tabs meloxicam 15 mg tablet 15 mg PO DAILY PRN pain 30 days 06/24/22 #30 tabs oxycodone 5 mg tablet 5 mg PO Q6H PRN severe pain (scale 12/10/22 score 7-10) #20 tabs oxycodone 5 mg tablet 5 mg PO Q6H PRN pain (scale score 12/11/22 7-10) #20 tabs citalopram 10 mg tablet 10 mg PO BEDTIME 90 days #90 tabs 01/18/23 atorvastatin 10 mg tablet 10 mg PO BEDTIME 90 days #90 tabs 03/12/23 memantine 14 mg capsule 14 mg PO DAILY 90 days #90 ea 03/28/23 sprinkle,extended release 24hr Allergies Allergy/AdvReac Type Severity Reaction Status Date / Time No Known Allergies Allergy Verified 06/28/23 09:41 [No Known Allergies*] Review of Systems Review of Systems: Yes all other systems are reviewed and are negative [facility] Past Medical History Attestation statement: The following information was validated with the patient. Medical History Depression Hx of osteopenia Family History Family History Father No problems noted. 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 No acute distress. HEENT: Normal inspection CVS: Normal heart rate and rhythm. Pulses normal. Respiratory: No respiratory distress Skin: Warm, dry, no rashes noted to exposed skin. Normal skin color. Normal skin turgor. Extremities: Right foot, 1st hammertoe noted, 2nd toe pushed upwards secondary to the 1st toe. There is no erythema, swelling. Patient has full range of motion of the toe without difficulty. Toe was nontender. Pain only occurs with ambulating. Neuro: Oriented X 3. No motor deficit. No sensory deficit. Course Reevaluation(s) Reevaluation #1: X-ray revealing a normal morphology of the 2nd proximal phalangeal head which may be due to a fracture. Patient has no tenderness to the toe, with full range of motion. No erythema or warmth. This is a chronic deformity that she has had, pain only you occurs with ambulation. She is currently taking Keflex as directed through Podiatry. Advised patient that we do not do toe amputations in the emergency room, and patient needs to follow-up with Podiatry and/or General surgery. Patient given referral to both of these. She was also encouraged to call her cold molding press operator to help facilitate this process. She understands and agrees with plan. Toe is noninfected does not require any interventions at this time. Discussed return precautions. Patient understands and agrees with plan. Patient stable for discharge. Medical Decision Making Medical Decision Making MDM Narrative: This is a 77-year-old female, with a history of hypertension, presenting to the emergency department with complaints of right 2nd toe pain. Patient states that she has a known hammertoe on her right foot. She states that over time her 2nd toe has crossed over her 1st toe due to the hammertoe. She was seen by her cold molding press operator which shoulders that she needs to have the 2nd toe removed. She was then seen by her primary care physician who instructed her to go to the emergency room to have this procedure done. Differential Diagnosis Differential Diagnoses: The differential diagnosis associated with the presentation includes Second toe pain, dislocation, fracture, hammertoe Independent Interpretation I performed an independent interpretation of an: Plain X-Ray Radiology Impression Discussion of test interpretation with radiology: I have reviewed the radiologist's reading. Radiologist Impression: EXAMINATION: XR TOES, RIGHT CLINICAL INFORMATION: Right second toe pain. COMPARISON: None available. TECHNIQUE: 3 views of the right toes were obtained. FINDINGS: Soft tissues are swollen in the forefoot, particularly at the second toe. There is hallux valgus with a hammertoe deformity at the second toe. There is abnormal morphology of the proximal phalangeal head which may be due to a fracture. This is age indeterminant. Otherwise, no acute fractures are identified. Bones are osteopenic. There is osteoarthritis in the interphalangeal joints, most notably at the DIP joints of the second and third toes. Mild osteoarthritis is present at the first MTP joint and in the imaged portion of the midfoot. No erosions are identified. XR/XR toe RT min 2V IMPRESSION: 1. Abnormal morphology of the second proximal phalangeal head which may be due to a fracture. Assessment of this region is limited by overlying structures. Recommend correlation for point tenderness in this region. No appreciable findings of osteomyelitis, though sensitivity is limited. Consider correlation with MRI if this is a clinical concern. 2. Soft tissue swelling in the second toe. 3. Hallux valgus and hammertoe deformity. Multifocal osteoarthritis. Discharge Plan Discharge Clinical Impression: Hammer toe, Strain of second toe, right Patient Disposition: Home, Self-Care Instructions: Hammertoe Correction (DC), Metatarsalgia (DC) Additional Instructions: Your x-ray does show some changes due to the position that your 1st toe putting pressure on the second toe. You need to follow-up with a cold molding press operator and or surgeon. I am giving you a referral to both. Please call them today to see if these are services that they can offer you. I also believe you should also call the cold molding press operator you previously were seen given they told you need to have this toe removed without any sort of referral to have this performed. Your primary care should be able to help assist you with this. Continue taking at home ibuprofen or Tylenol as needed. Continue taking prescribed antibiotic. If any new or worsening symptoms occur including but not limited to worsening redness, fevers, chills, worsening pain, please return for re-evaluation. Prescriptions: No Action meloxicam 15 mg tablet 15 mg PO DAILY PRN (Reason: pain) 30 Days Qty: 30 2RF citalopram 10 mg tablet 10 mg PO BEDTIME 90 Days Qty: 90 0RF Rx Instructions: Schedule next PCP appt for future refills atorvastatin 10 mg tablet 10 mg PO BEDTIME 90 Days Qty: 90 0RF Rx Instructions: Schedule next PCP appt for future refills memantine 14 mg capsule,sprinkle,ER 24hr 14 mg PO DAILY 90 Days Qty: 90 0RF Rx Instructions: Schedule next PCP appt for future refills oxycodone 5 mg tablet 5 mg PO Q6H PRN (Reason: severe pain (scale score 7-10)) Qty: 20 0RF Rx Instructions: Partial Fill upon patient request. May cut tablets in half oxycodone 5 mg tablet 5 mg PO Q6H PRN (Reason: pain (scale score 7-10)) Qty: 20 0RF Rx Instructions: Partial Fill upon patient request. oxycodone-acetaminophen [Percocet] 5-325 mg tablet 1 tab PO DAILY PRN (Reason: pain) 14 Days Qty: 14 0RF Rx Instructions: Partial Fill upon patient request. multivitamin [Daily Multi-Vitamin] Tablet 1 tab PO DAILY Referrals: Mary Dolan DPM [Physician] - Jovita Hall MD [Physician] - Interventions: ED Discharge Assessment Last Done: 06/28/23 12:41 Discharge Date/Time: 06/28/23 12:41
== END 2023-06-28 12:41 | disposition home or self-care (01) ==
PROVIDERS: Emergency Provider Emergency Medicine; PCP Nurse Practitioner Family
DX: M20.41 Other hammer toe(s) (acquired), right foot (principal); M79.674 Pain in right toe(s); F17.210 Nicotine dependence, cigarettes, uncomplicated; Z79.899 Other long term (current) drug therapy
CPT/HCPCS: 73660; 99282; 99283

== ENCOUNTER 2023-09-03 09:57 | Outpatient (AMB) | payer MEDICARE, SELFPAY ==
[2023-09-03 10:16] VITALS: BP 156/90; PULSE 75; O2SAT 100; BMI 18.0
--- NOTE | 2023-09-03 10:16 | A.OFFPC_ITS ---
Vital Signs 09/03/23 10:16 Height 5 ft 2 in Weight 98 lb 4 oz BMI 18.0 BP 156/90 H Blood Pressure Location Rt brachial Position Sitting Pulse 75 Pulse Source Pulse Oximeter Pulse Oximetry (%) 100 Oxygen Delivery Method Room Air Intake Visit Reasons: Follow Up On Hearing Intake Note: Pt is here to follow up on her hearing Allergies No Known Allergies [No Known Allergies*] Allergy (Verified 09/03/23 10:21) Tobacco use date assessed: 09/03/23 Fall risk assessment: No Falls in past year Last assessed Fall Risk: 09/03/23 Dental Screening Dental Screen Date: 09/03/23 Did you have a dental visit in the last 12 months?: No Did you have a dental problem in the last 6 months where you did not have access to dental care?: No Was dental information given to patient?: No HPI Follow Up On Hearing HPI Details Pt reports decreased hearing of her right ear. Extensive cerumen noted on exam. Ear lavage was unsuccessful. Will have pt use debrox at home and follow up in office. Denies fever, chills, and dizziness. elevated BP. Pt does appear anxious. WIll have her take her BP at home and bring in values, denies any cp, sob, dizziness, or santos PFSH Medical History Depression Hx of osteopenia Family History Father No problems noted. 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 1. Little interest or pleasure in doing things: not at all 2. Feeling down, depressed, or hopeless: nearly every day 3. Trouble falling or staying asleep, or sleeping too much: more than half the days 4. Feeling tired or having little energy: not at all 5. Poor appetite or overeating: several days 6. Feeling bad about yourself - or that you are a failure or have let yourself or your family down: several days 7. Trouble concentrating on things, such as reading the newspaper or watching television: not at all 8. Moving or speaking so slowly that other people could have noticed. Or the opposite - being so fidgety or restless that you have been moving around a lot more than usual: not at all 9. Thoughts that you would be better off or of hurting yourself in some way: several days Total score: 8 Source: Developed by Drs. Karl Edmond, Tanisha Khan, Dileep Matthews and colleagues, with an educational nicholas from [employer]. Thrive Questionnaire Date Thrive assessed: 09/03/23 I am a: Patient What is your living situation today?: I have a steady place to live Within the past 12 months, did the food you bought not last and you didn't have the money to get more?: Never true Within the past 12 months, did you worry whether your food would run out before you got money to buy more?: Never true Do you have trouble paying for medicines?: No Do you have trouble getting transportation to medical appointments?: No Do you have trouble paying your heating and electricity bill?: No Do you have trouble taking care of your child, family member or friend?: No Do you have trouble with day-to-day activities such as bathing, preparing meals, shopping, managing finances, etc.?: No Are you currently unemployed and looking for a job?: No Are you interested in more education?: No THRIVE Score: 0 AUDIT C Alcohol Use Questionnaire (AUDIT-C) 1. How often do you have a drink containing alcohol?: Never Total Score: 0 ISABELLA-7 AMB Questionnaire ISABELLA-7 Date ISABELLA - 7 assessed: 09/03/23 Feeling nervous, anxious, or on edge: 3 = Nearly every day Not being able to stop or control worryin = Nearly every day Worrying too much about different things: 3 = Nearly every day Trouble relaxin = Nearly every day Being so restless that it is hard to sit still: 0 = Not at all Becoming easily annoyed or irritable: 3 = Nearly every day Feeling afraid as if something awful might happen: 1 = Several days Total ISABELLA-7 score (0-4 normal; 5-9 mild; 10-14 moderate; 15-21 severe): 16 Source: Developed by Drs. Karl Edmond, Tanisha Khan, Dileep Matthews and colleagues, with an educational nicholas from [employer]. Review of Systems Const Reports as per HPI Physical exam (Primary Care) Vital Signs: Last Vital Signs Pulse 75 09/03/23 10:16 BP 156/90 H 09/03/23 10:16 Pulse Ox 100 09/03/23 10:16 Oxygen Delivery Method Room Air 09/03/23 10:16 BMI result Body Mass Index 18.0 Tobacco/Smoking Status: Tobacco use Status Tobacco use date assessed 09/03/23 09/03/23 10:25 Patient Tobacco Use Status Current everyday Tobacco 09/03/23 10:25 e-Cigarette/Vaping Use Never Used 09/03/23 10:25 PHQ-9: PHQ-9 Score PHQ-9: Total score 8 09/03/23 11:26 Thrive Assessment: Date of Thrive Assessment Date Thrive assessed 09/03/23 09/03/23 10:28 Const Other: skinny stature General: cooperative Orientation/consciousness: patient oriented x3 HENMT Other: cerumen noted to right ear, after ear lavage residual cerumen noted Resp Effort & Inspection: normal respiratory effort Auscultation: clear to auscultation bilaterally Cardio Rate: regular rate Rhythm: regular rhythm Heart sounds: S1 normal heart sound present and S2 normal heart sound present Neuro General: patient oriented x3 Psych Appearance: grossly normal Mental Status: mental status grossly normal Speech and movement: Normal speech and movement present Affect: normal affect Attitude: cooperative Thought process: Normal thought process present Thought content: Normal thought content present Insight: Good insight present (Psych) Judgement: Good judgement present (Psych) Office Procedures Cerumen Removal From which ear canal was the cerumen removed: right Removal: irrigation Notes: patient tolerated procedure well and no complications [id number] Irrigation/Lavage (not successful. will have pt use debrox and follow up with me) Assessment and Plan Assessment & Plan (1) Cerumen impaction: Code(s): H61.20 - Impacted cerumen, unspecified ear (2) Elevated BP without diagnosis of hypertension: Code(s): R03.0 - Elevated blood-pressure reading, without diagnosis of hypertension Plan The patient agreed to the use of a medical office assistant for this encounter. Scribed for DEONNA Maciel by marilia Tejeda scribe, on 09/03/2023 at 10:45 EST. Coding Level of Care Code Est Pt Level 3 (21537) Diagnoses Cerumen impaction H61.20 Elevated BP without diagnosis of hypertension R03.0 CPT Codes Office Procedure - CPT: 55135-Nuu Irrigation/Lavage ([id number])
== END 2023-09-03 11:24 | disposition home or self-care (01) ==
PROVIDERS: PCP Nurse Practitioner Family; Visit Provider Nurse Practitioner Family
DX: H61.21 Impacted cerumen, right ear (principal); R03.0 Elevated blood-pressure reading, without diagnosis of hypertension
CPT/HCPCS: 69209; 99213

== ENCOUNTER 2024-01-30 12:56 | Outpatient (REF) | payer MEDICARE, SELFPAY ==
[2024-01-30 18:25] LABS: Alanine Aminotransferase 7 U/L (0-31); Albumin Level 3.9 g/dL (3.5-5.0); Alkaline Phosphatase 63 U/L (39-117); Anion Gap 14 (12-20); Aspartate Amino Transferase 17 U/L (5-31); Bilirubin Total 0.5 mg/dL (0.0-1.0); Blood Urea Nitrogen 12 mg/dL (9-16); Calcium 9.3 mg/dL (8.4-10.2); Carbon Dioxide 25 mmol/L (22-29); Chloride 106 mmol/L (96-108); Cholesterol 142 mg/dL (<200); Estimated Glomerular Filt Rate > 60; Glucose Fasting 93 mg/dL (60-99); HDL Cholesterol 48 mg/dL (>40); LDL Cholesterol Calculated 79 mg/dL (<100); Potassium 4.2 mmol/L (3.3-5.1); Sodium 141 mmol/L (135-145); Total Protein 6.6 g/dL (6.5-8.0); Triglycerides 76 mg/dL (<150)
[2024-01-30 18:43] LABS: Vitamin D 25-OH Total 17.2 ng/mL (>30)
== END 2024-01-30 12:57 | disposition home or self-care (01) ==
LOC: HO.HMGCLDS 12:56
PROVIDERS: PCP Nurse Practitioner Family; Visit Provider Nurse Practitioner Family
DX: E55.9 Vitamin D deficiency, unspecified (principal); E78.5 Hyperlipidemia, unspecified
CPT/HCPCS: 36415; 80053; 80061; 82306

== ENCOUNTER 2024-03-04 11:22 | Outpatient (AMB) | payer MEDICARE, SELFPAY ==
--- NOTE | 2024-03-04 11:26 | MHC.PC.OV ---
Vital Signs 03/04/24 11:28 Weight 90 lb 2 oz BP 124/86 Blood Pressure Location Lt brachial Position Sitting Pulse 62 Pulse Source Pulse Oximeter Pulse Oximetry (%) 97 Oxygen Delivery Method Room Air Intake Visit Reasons: Follow Up Intake Note: Patient here for f/u Allergies No Known Allergies [No Known Allergies*] Allergy (Verified 03/04/24 11:29) Tobacco use date assessed: 09/03/23 Fall risk assessment: No Falls in past year Last assessed Fall Risk: 03/04/24 Dental Screening Dental Screen Date: 09/03/23 HPI Follow Up HPI Details Dyslipidemia: Pt is currently taking atorvastatin 10mg. Will repeat labs. Pt has a hx of osteopenia. Will order vitamin D and bone density. Refuses mammograms. Pt has had some weight loss. She reports not eating as much when she is aggravated. She does not want labs or imaging to look into this further. Reenforced importance of a proper diet and fluid intake. Pt is a smoker, refuses low-dose CT. [facility] Medical History Depression Hx of osteopenia Family History Father No problems noted. 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 1. Little interest or pleasure in doing things: more than half the days 2. Feeling down, depressed, or hopeless: not at all 3. Trouble falling or staying asleep, or sleeping too much: not at all 4. Feeling tired or having little energy: not at all 5. Poor appetite or overeating: not at all 6. Feeling bad about yourself - or that you are a failure or have let yourself or your family down: not at all 7. Trouble concentrating on things, such as reading the newspaper or watching television: not at all 8. Moving or speaking so slowly that other people could have noticed. Or the opposite - being so fidgety or restless that you have been moving around a lot more than usual: not at all 9. Thoughts that you would be better off or of hurting yourself in some way: not at all Total score: 2 Source: Developed by Drs. Karl Edmond, Tanisha Khan, Dileep Matthews and colleagues, with an educational nicholas from [employer]. Thrive Questionnaire Date Thrive assessed: 09/03/23 I am a: Patient What is your living situation today?: I have a steady place to live Within the past 12 months, did the food you bought not last and you didn't have the money to get more?: Never true Within the past 12 months, did you worry whether your food would run out before you got money to buy more?: Never true Do you have trouble paying for medicines?: No Do you have trouble getting transportation to medical appointments?: No Do you have trouble paying your heating and electricity bill?: No Do you have trouble taking care of your child, family member or friend?: No Do you have trouble with day-to-day activities such as bathing, preparing meals, shopping, managing finances, etc.?: No Are you currently unemployed and looking for a job?: No Are you interested in more education?: No Please select the resources that you would like help with: Housing/Correction Currently or been in a relationship where the following occur: No concerns reported THRIVE Score: 0 AUDIT C Alcohol Use Questionnaire (AUDIT-C) 1. How often do you have a drink containing alcohol?: Never Total Score: 0 ISABELLA-7 AMB Questionnaire ISABELLA-7 Date ISABELLA - 7 assessed: 09/03/23 Feeling nervous, anxious, or on edge: 0 = Not at all Not being able to stop or control worryin = Not at all Worrying too much about different things: 0 = Not at all Trouble relaxin = Not at all Being so restless that it is hard to sit still: 0 = Not at all Becoming easily annoyed or irritable: 0 = Not at all Feeling afraid as if something awful might happen: 0 = Not at all Total ISABELLA-7 score (0-4 normal; 5-9 mild; 10-14 moderate; 15-21 severe): 0 Source: Developed by Drs. Karl Edmond, Tanisha Khan, Dileep Matthews and colleagues, with an educational nicholas from [employer]. ISABELLA-7 Assessment Billing ISABELLA-7 Assessment Tool: ISABELLA-7 Assessment 81083 Review of Systems Const Reports as per HPI Physical exam (Primary Care) Vital Signs: Last Vital Signs Pulse 62 03/04/24 11:28 BP 124/86 03/04/24 11:28 Pulse Ox 97 03/04/24 11:28 Oxygen Delivery Method Room Air 03/04/24 11:28 Tobacco/Smoking Status: Tobacco use Status Tobacco use date assessed 09/03/23 03/04/24 11:27 Patient Tobacco Use Status Current everyday Tobacco 03/04/24 11:27 e-Cigarette/Vaping Use Never Used 03/04/24 11:27 PHQ-9: PHQ-9 Score PHQ-9: Total score 2 03/04/24 11:51 Thrive Assessment: Date of Thrive Assessment Date Thrive assessed 09/03/23 03/04/24 11:27 Currently or been in a relationship where the following occur: No concerns reported Const General: cooperative Orientation/consciousness: patient oriented x3 Neuro General: patient oriented x3 Psych Appearance: grossly normal Mental Status: mental status grossly normal Speech and movement: Normal speech and movement present Affect: normal affect Attitude: cooperative Thought process: Normal thought process present Thought content: Normal thought content present Insight: Good insight present (Psych) Judgement: Good judgement present (Psych) Assessment and Plan Assessment & Plan (1) Dyslipidemia: Code(s): E78.5 - Hyperlipidemia, unspecified Plan: Labs ordered (2) Postmenopausal: Code(s): Z78.0 - Asymptomatic menopausal state Plan: Vitamin D ordered (3) Osteopenia: Code(s): M85.80 - Other specified disorders of bone density and structure, unspecified site Plan: Vitamin D and bone density ordered Plan The patient agreed to the use of a medical technicians for this encounter. Scribed for DEONNA Maciel by Chary Flores medical technicians, on 03/04/2024 at 11:50 EST. Orders: Orders Comprehensive [place]. Panel Fast Today E78.5 - Hyperlipidemia, unspecified UA CC w/rflx Micro + Cult Today E78.5 - Hyperlipidemia, unspecified Lipid Panel Today E78.5 - Hyperlipidemia, unspecified Vitamin D 25-OH Total Today M85.80 - Other specified disorders of bone density and structure, unspecified site, Z78.0 - Asymptomatic menopausal state Complete Blood Count Auto Diff Today E78.5 - Hyperlipidemia, unspecified TSH reflex Free T4 Today E78.5 - Hyperlipidemia, unspecified XR DEXA axial skeleton Today M85.80 - Other specified disorders of bone density and structure, unspecified site Coding Level of Care Code Est Pt Level 3 (94515) Diagnoses Dyslipidemia E78.5 Postmenopausal Z78.0 Osteopenia M85.80 Additional Codes ISABELLA-7 Assessment Billing - ISABELLA-7 Assessment Tool: ISABELLA-7 Assessment 84977 ([id number])
[2024-03-04 11:28] VITALS: BP 124/86; PULSE 62; O2SAT 97
== END 2024-03-04 12:02 | disposition home or self-care (01) ==
PROVIDERS: PCP Nurse Practitioner Family; Visit Provider Nurse Practitioner Family
DX: E78.5 Hyperlipidemia, unspecified (principal); Z78.0 Asymptomatic menopausal state; M85.80 Other specified disorders of bone density and structure, unspecified site
CPT/HCPCS: 99213

== ENCOUNTER 2024-07-07 12:56 | Outpatient (AMB) | payer MEDICARE, SELFPAY ==
--- NOTE | 2024-07-07 12:57 | A.OFFPC_ITS ---
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 During the visit, she reported cognitive decline for which she is taking memantine. Her serves as her primary caregiver, indicating some level of dependence, although she manages basic needs and communicates effectively. The patient also has a history of tobacco use, continuing to smoke cigarettes despite the associated risks. She refuses routine screening tests, including colon cancer screening, mammography, and low-dose CT scans. Despite having laboratory tests ordered for February, she has not completed them yet. Social History - The patient lives in her own house wit h her . - She is a smoker and continues to use t obacco. - Has no children; refers to her dogs as family. - Has some interaction with her sister-i n-law, although interactions are not frequent due to her [id number]-rm-aqc's responsibilities. - Does not drive and is mostly at home a lone. Review of Systems - Ears: Reports occasional earwax blocka ge. denies any SI or HI denies any cp, sob, n/v, fevers, chills, burning with urination, constipation/diarrhea Physical Exam General: Cooperative, healthy appearing, comfortable, no acute distress and well developed Orientation: Patient oriented x3, but some cognitive decline noted Limitations: No limitations Head: Normal to inspection Ears: Hearing grossly normal bilaterally, but some wax noted in one ear Nose: Normal external nose present Face and sinus: Normal facial exam Eyes: Appearance normal, both eyes and all related structures Neck: Normal visual inspection and Yes full ROM Respiratory: Normal respiratory effort and able to speak in complete sentences. Clear/dim to auscultation bilaterally Cardiovascular: Regular rate and rhythm. Normal S1 and S2 GI: Normal to inspection. Soft to palpation and nontender Skin: No rashes or lesions noted Neuro: Patient oriented x3, but some cognitive decline noted Extremities: Normal to inspection Results Plan - Cognitive decline/dementia: Continue c urrent medication, memantine. - Tobacco use disorder: Encourage smokin g cessation. - Routine physical exam: Ensure completi on of delayed laboratory tests and add bone density evaluation. - Health maintenance: Reinforce the need for preventive screenings, though the patient refuses colonoscopy, mammography, and low-dose CT scan. Patient was informed and verbally consented to the use of an ambient scribe for clinic note documentation during this visit. Discussion Notes I discussed the importance of completing previous laboratory tests and introduced an additional bone density assessment for preventive care. Despite suggestions, the patient refuses to undergo colon cancer screening, mammography, and low-dose CT scans. I encouraged quitting smoking due to the long-term health risks. We also discussed the continuity of care regarding her cognitive decline, managed with memantine, which she tolerates well. The patient is advised to revisit in six months, use fasting overnight for lab tests, and consider pneumonia vaccination administration today. Patient Instructions - Follow up in six months for routine ev aluation. - Complete fasting laboratory tests at y our convenience with 12 hours of overnight fasting, water permitted. - Consider receiving the pneumonia vacci ne today. - Discuss quitting smoking at the next v isit. - Maintain current routine for cognitive decline with memantine. - Seek medical attention if any new or w orsening symptoms occur. [facility] Medical History Depression Hx of osteopenia Surgical History No pertinent past surgical history Family History Father No problems noted. 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 20161 - PHQ-9 Billing: Patient declined-do not bill Source: Developed by Drs. Karl Edmond, Dileep Christy and colleagues, with an educational nicholas from [employer]. Thrive Questionnaire Date Thrive assessed: 03/04/24 I am a: Patient What is your living situation today?: I have a steady place to live Within the past 12 months, did the food you bought not last and you didn't have the money to get more?: Never true Within the past 12 months, did you worry whether your food would run out before you got money to buy more?: Never true Do you have trouble paying for medicines?: No Do you have trouble getting transportation to medical appointments?: No Do you have trouble paying your heating and electricity bill?: No Do you have trouble taking care of your child, family member or friend?: No Do you have trouble with day-to-day activities such as bathing, preparing meals, shopping, managing finances, etc.?: No Are you currently unemployed and looking for a job?: No Are you interested in more education?: No Please select the resources that you would like help with: None Currently or been in a relationship where the following occur: No concerns reported THRIVE Score: 0 ISABELLA-7 AMB Questionnaire ISABELLA-7 Date ISABELLA - 7 assessed: 09/03/23 Source: Developed by Drs. Karl Edmodn, Dileep Christy and colleagues, with an educational nicholas from [employer]. Physical exam (Primary Care) Vital Signs: Last Vital Signs Pulse 76 07/07/24 12:58 BP 126/80 07/07/24 12:58 Pulse Ox 96 07/07/24 12:58 Oxygen Delivery Method Room Air 07/07/24 12:58 BMI result Body Mass Index 17.3 Tobacco/Smoking Status: Tobacco use Status Tobacco use date assessed 09/03/23 07/07/24 13:00 Patient Tobacco Use Status Current everyday Tobacco 07/07/24 13:00 e-Cigarette/Vaping Use Never Used 07/07/24 13:00 Thrive Assessment: Date of Thrive Assessment Date Thrive assessed 03/04/24 07/07/24 13:00 Currently or been in a relationship where the following occur: No concerns reported Immunizations pneumoc 20-daphne conj-dip cr(PF) 0.5 mL IM syringe Performing Provider: DEONNA Titus Performing Location: [facility] Administered by: Teddy Wu CMA on 07/07/24 13:33 Dose Route Admin Location Dispensed Lot Number Expiration Date [facility] [employer] 0.5 mL IM Left Deltoid 0.5 mL [id number] 11/22/25 7911-1178-31 WYETH/PFIZER VIS Given Date VIS Provided VIS Publication Date 07/07/24 Single Vaccine 21 Eligibility Eligibility Date Funding Source Not [facility] Eligible 07/07/24 Private Coding Level of Care Code Est Pt Prev Care >65y(09534) Diagnoses Physical exam Z00.00 Assessment & Plan Assessment & Plan (1) Physical exam: Code(s): Z00.00 - Encounter for general adult medical examination without abnormal findings Category: Medical Plan . Orders: Orders Pneumococcal 20 Immunization Today Z23 - Encounter for immunization Medications: New pneumoc 20-daphne conj-dip cr(PF) 0.5 mL IM ONCE 0.5 mL 0RF Z23 - Encounter for immunization
[2024-07-07 12:58] VITALS: BP 126/80; PULSE 76; O2SAT 96; BMI 17.3
== END 2024-07-07 13:38 | disposition home or self-care (01) ==
PROVIDERS: PCP Nurse Practitioner Family; Visit Provider Nurse Practitioner Family
DX: Z23 Encounter for immunization (principal); Z00.00 Encounter for general adult medical examination without abnormal findings

== ENCOUNTER → 2024-07-07 12:56 | Outpatient (BNVA) | payer MEDICARE, SELFPAY | PROVIDERS: PCP Nurse Practitioner Family; Visit Provider Nurse Practitioner Family | DX: Z00.00 Encounter for general adult medical examination without abnormal findings (principal); Z23 Encounter for immunization | CPT/HCPCS: 90471; 90677; 99397 ==

== ENCOUNTER 2025-07-19 14:14 | Outpatient (AMB) | payer MEDICARE, SELFPAY ==
--- OUTSIDE RECORDS SUMMARY | 2025-06-18 07:00 | XMS_ITS ---
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 Seen Sooner. * Medical History: Objective: * Vitals: Assessment: Plan: * Treatment: * Images: * The named appointment provid er may or may not be the originator of this progress note, and it is not deemed complete until electronically signed by the appointment provider. Sign off status: Pending * Provider: Francisca Lester DPM Date: 08/18/2024 Generated for Nenai ng/Faalanag/eTransmitting on: 09/19/2024 08:39 PM EST
--- NOTE | 2025-07-19 14:57 | A.OFFPC_ITS ---
Vital Signs 07/19/25 14:59 Height 5 ft 2 in Weight 102 lb BMI 18.7 BP 172/90 H Blood Pressure Location Lt brachial Position Sitting Respiration 16 Pulse 65 Pulse Source Pulse Oximeter Pulse Oximetry (%) 97 Oxygen Delivery Method Room Air Intake Visit Reasons: PE - see comments Bookmobile Driver Required: No Accompanied by: Self / Same As Patient Allergies No Known Allergies (No Known Allergies*) Allergy (Verified 07/19/25 15:00) Medication List - Last Reconciled 07/19/25 by BRIE Titus atorvastatin 10 mg PO BEDTIME citalopram 10 mg PO BEDTIME 90 days losartan 25 mg PO DAILY 90 days memantine 14 mg PO DAILY 90 days multivitamin (Daily Multi-Vitamin tablet) 1 tab PO DAILY Tobacco use date assessed: 07/19/25 Fall risk assessment: No Falls in past year Last assessed Fall Risk: 07/19/25 Dental Screening Dental Screen Date: 07/19/25 Did you have a dental visit in the last 12 months?: No Did you have a dental problem in the last 6 months where you did not have access to dental care?: No Was dental information given to patient?: Patient has dentist HPI PE - see comments HPI Details History of Present Illness The patient is a 79-year-old female presenting for a physical exam. She has a history of dementia. For health maintenance, she refuses any mammogram, colonoscopy, or bone density exam. HTN: noted in office today Health Maintenance The patient will have fasting labs drawn in the near future. Social History - Caregiver: Her is her primary caregiver. Review of Systems - Cardiovascular: Denies chest pain. - Respiratory: Denies shortness of breat h. - Gastrointestinal: Denies abdominal nii n, blood in stool, constipation, or diarrhea. - Psychiatric: Denies suicidal or homici rock ideation. Physical Exam General: Cooperative, healthy appearing, comfortable, no acute distress and well developed Orientation: Patient oriented x3 Limitations: No limitations Head: Normal to inspection Ears: Excessive cerumen bilaterally Nose: Normal external nose present Face and sinus: Normal facial exam Eyes: Appearance normal, both eyes and all related structures Neck: Normal visual inspection and Yes full ROM Respiratory: Normal respiratory effort and able to speak in complete sentences. dim to auscultation bilaterally Cardiovascular: Elevated blood pressure GI: Normal to inspection. Soft to palpation and nontender Skin: No rashes or lesions noted Neuro: Patient oriented x3 Extremities: Normal to inspection Results Plan 1. Hypertension Starting low dose losartan (25mg), labs in 2 weeks 2. Cerumen Impaction An ear lavage will be performed today to address the bilateral cerumen impaction. 3. physical exam with abnormal findings Discussion Notes I was able to have a good conversation with the patient today despite her history of dementia. I noted she has bilateral excessive cerumen, and we will flush that out today. Her blood pressure was elevated, so starting medication. She will get fasting labs in the near future. She has refused a mammogram and colonoscopy and also declined a bone density exam. Patient Instructions - We will flush the wax out of your ears today. - vaccinations written down for pt -BP med sent - fasting blood work done soon. [facility] Medical History Depression Hx of osteopenia Surgical History No pertinent past surgical history Family History Father No problems noted. 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 2. Feeling down, depressed, or hopeless: not at all 3. Trouble falling or staying asleep, or sleeping too much: not at all 4. Feeling tired or having little energy: not at all 5. Poor appetite or overeating: not at all 6. Feeling bad about yourself - or that you are a failure or have let yourself or your family down: not at all 7. Trouble concentrating on things, such as reading the newspaper or watching television: not at all 8. Moving or speaking so slowly that other people could have noticed. Or the opposite - being so fidgety or restless that you have been moving around a lot more than usual: not at all 9. Thoughts that you would be better off or of hurting yourself in some way: not at all Depression Screening Interpretation: Negative Depression Screening Done: Yes 52127 - PHQ-9 Billing: Yes Source: Developed by Drs. Karl Edmond, Tanisha Khan, Dileep Matthews and colleagues, with an educational nicholas from [employer]. Thrive Questionnaire Date Thrive assessed: 03/04/24 I am a: Patient What is your living situation today?: I have a steady place to live Within the past 12 months, did the food you bought not last and you didn't have the money to get more?: Never true Within the past 12 months, did you worry whether your food would run out before you got money to buy more?: Never true Do you have trouble paying for medicines?: No Do you have trouble getting transportation to medical appointments?: No Do you have trouble paying your heating and electricity bill?: No Do you have trouble taking care of your child, family member or friend?: No Do you have trouble with day-to-day activities such as bathing, preparing meals, shopping, managing finances, etc.?: No Are you currently unemployed and looking for a job?: No Are you interested in more education?: No Please select the resources that you would like help with: None Currently or been in a relationship where the following occur: No concerns reported THRIVE Score: 0 ISABELLA-7 AMB Questionnaire ISABELLA-7 Date ISABELLA - 7 assessed: 09/03/23 Source: Developed by Drs. Karl Edmond, Tanisha Khan, Dileep Matthews and colleagues, with an educational nicholas from [employer]. Physical exam (Primary Care) Vital Signs: Last Vital Signs Pulse 65 07/19/25 14:59 Resp 16 07/19/25 14:59 BP 172/90 H 07/19/25 14:59 Pulse Ox 97 07/19/25 14:59 Oxygen Delivery Method Room Air 07/19/25 14:59 BMI result Body Mass Index 18.7 Tobacco/Smoking Status: Tobacco use Status Tobacco use date assessed 07/19/25 07/19/25 15:04 Patient Tobacco Use Status Former Tobacco user 07/19/25 15:04 e-Cigarette/Vaping Use Never Used 07/19/25 14:59 Depression Screening Interpretation: Negative Thrive Assessment: Date of Thrive Assessment Date Thrive assessed 03/04/24 07/19/25 14:59 Currently or been in a relationship where the following occur: No concerns reported Office Procedures Cerumen Removal From which ear canal was the cerumen removed: bilateral Removal: irrigation Notes: patient tolerated procedure well, no complications and ear canal clear 59832-Bou Irrigation/Lavage Coding Level of Care Code Est Pt Level 3 (65423) Est Pt Prev Care >65y(71230) Diagnoses Encounter for routine adult physical exam with abnormal findings Z00.01 Cerumen impaction H61.20 HTN (hypertension) I10 CPT Codes Office Procedure - CPT: 38849-Gih Irrigation/Lavage ([id number]) Additional Codes PHQ-9 - 77831 - PHQ-9 Billing: Yes ([id number]) Assessment & Plan Assessment & Plan (1) Encounter for routine adult physical exam with abnormal findings: Code(s): Z00.01 - Encounter for general adult medical examination with abnormal findings Category: Medical (2) Cerumen impaction: Code(s): H61.20 - Impacted cerumen, unspecified ear Category: Medical (3) HTN (hypertension): Code(s): I10 - Essential (primary) hypertension Category: Medical Plan . Medications: New losartan 25 mg PO DAILY 90 tabs 0RF 90 days
[2025-07-19 14:59] VITALS: BP 172/90; PULSE 65; RESP 16; O2SAT 97; BMI 18.7
--- OUTSIDE RECORDS SUMMARY | 2025-07-19 20:39 | XMS_ITS | Patient Health Record ---
Author Organization [facility] Address [address] [place] [address] Care Team Providers Care Liturgical Music Director Name Role Phone Mir Parham Primary Care Provider Unav ailable Roel Lester Unavailable [phone] Sadaf Guzman Unavailable [phone] Allergies No Known Allergies Reason For Referral No Information Medications Medication SIG (Take, Route, Fr equency, Duration) Notes Start Date End Date Status Lamisil 250 250 MG 1 Tab Oral Daily; Du ration: 90 06/05/2012 Not-Taking Centrum Silver as directed Orally Not-Taking Immunizations Vaccine Route Administration Date Status Comme nts COVID-19 Jairo & Jairo/Jenniffer Unknown 03/13/2022 R efused Social History Tobacco Use: Social History Observation Description Date Details (start date - stop date) Never Smoker NA - NA Tobacco use other than smoking: Question Answer Notes Are you an other tobacco user? Yes V ape Tobacco Control (Standard) Question Answer Notes Tobacco use: Nonsmoker Additional Findings: Tobacco non-user Current no nsmoker AUDIT-C (Standard) Question Answer Notes Did you have a drink containing alcohol in the p ast year? No Points 0 Interpretation Negative Problems Problem Type SNOMED Code ICD Code Onset Dates Problem Status W/U Status Risk Notes Problem Bilateral atherosclerosis of arteries of lower limbs (disorder) (4538548634882359 7) Atherosclerosis of [place] artery of both lower extremities, with unspecified presence of clinical manifestation (I70.203) Active confirmed Problem Ischemic ulcer o f right foot, limited to breakdown of skin (L97.511) Active confirmed Response to treatment, Unresolved Vital Signs Blood pressure diastolic 70 mm Hg 05/13/2025 Height 5 ft 2 in in 05/13/2025 Blood pressure systolic 120 mm Hg 05/13/2025 Weight 90 lbs 05/13/2025 BMI 16.46 kg/m2 05/13/2025 Encounters Encounter Location Date Provider Diagnosis [facility] [address] [place] [address] 05/13/2025 Sadaf Guzman Atherosclerosis of [place] artery of both lower extremities, with unspecified presence of clinical manifestation I70.203 ; Tinea unguium B35.1 ; Pain in right toe(s) M79.674 and Pain in left toe(s) M79.675 Assessments Encounter Date Diagnosis (ICD Code) Assessment Notes Treatment Notes Treatment Clinical Notes Section Notes 05/13/2025 Tinea unguium (ICD-10 - B35.1) 05/13/2025 Atherosclerosis of [place] artery of both lower extremities, with unspecified presence of clinical manifestation (ICD-10 - I70.203) 05/13/2025 Pain in right toe(s) (ICD-10 - M79.674) 05/13/2025 Pain in left toe(s) (ICD-10 - M79.675) Plan Of Treatment Pending Test Test Name Order Date *Liver Function Test (LFT) 06/05/2012 X ray : Foot, right 3V 05/07/2012 X ray : Foot, right 3V 06/17/2023 [id number] NAIL, 6 OR MORE 06/25/2023 66732-KPOQLSX NAIL, 6 OR MORE 03/13/2022 78939-ZLYZXOK NAIL, 6 OR MORE 09/24/2023 16309- Debride <25 sq cm 09/24/2023 68852- Debride <25 sq cm 06/25/2023 15126-ZYAU SKIN LESIONS, OVER 4 09/24/19 24 19318-ZEUR SKIN LESIONS, 2 TO 4 06/25/20 23 09209, J0702- Neuroma/Injection 06/05/20 12 Insurance Providers Payer Name Payer Address Payer Phone Subscriber Number Group Number Insured Name Patient Relationship to Insured Coverage Start Date Coverage End Date A[employer] Medicare Complete [address] [address] [place] [address] [phone] [id number] Nella Garcia Self - patient is the insured Medical (General) History Medical History History ICD Code headaches/migraines measles mumps chicken pox Surgical History Surgery Date(Month/Year) hysterectomy tumor removal
== END 2025-07-19 16:13 | disposition home or self-care (01) ==
LOC: HO.HMCC 14:15
PROVIDERS: PCP Nurse Practitioner Family; Visit Provider Nurse Practitioner Family
DX: Z00.01 Encounter for general adult medical examination with abnormal findings (principal); H61.23 Impacted cerumen, bilateral; I10 Essential (primary) hypertension

== ENCOUNTER → 2025-07-19 14:14 | Outpatient (BNVA) | payer MEDICARE, SELFPAY | PROVIDERS: PCP Nurse Practitioner Family; Visit Provider Nurse Practitioner Family | DX: Z00.00 Encounter for general adult medical examination without abnormal findings (principal); I10 Essential (primary) hypertension; H61.23 Impacted cerumen, bilateral; Z79.899 Other long term (current) drug therapy; Z13.31 Encounter for screening for depression | CPT/HCPCS: 69209; 96127; 99212; 99397 ==

== ENCOUNTER 2025-08-03 09:30 | Outpatient (REF) | payer MEDICARE, SELFPAY ==
--- OUTSIDE RECORDS SUMMARY | 2025-06-18 07:00 | XMS_ITS ---
Author Organization [facility] Address [address] [place] [address] Care Team Providers Care Oracle Programmer Analyst Name Role Phone Mir Parham Primary Care Provider Unav ailable Roel Lester Unavailable [phone] REASON FOR VISIT Seen Sooner Encounters Encounter Location Date Provider Diagnosis [address] [address] 06/18/2025 Roel Lester Plan Of Treatment No Information Progress Notes * Nella MARTINEZDOB:1945 (79 yo F)Acc No.[id number]:06/18/2025 Progress Note Patient: Nella SPRINGER Provider: Francisca Lester DPM :1945 A ge:79 Y S ex:Female Date:06/18/2025 Address:[address] [place] [id number] Pcp:JOSE ENRIQUE Maciel Subjective: * Chief Complaints: [...] Date: 08/18/2024 Generated for Nenai ng/Faalanag/eTransmitting on: 12:13 PM EST
--- OUTSIDE RECORDS SUMMARY | 2025-08-03 12:13 | XMS_ITS | Patient Health Record ---
Author Organization [facility] Address [address] [place] [address] Care Team Providers Care Nursing Care Partner Name Role Phone Mir Parham Primary Care Provider Unav ailable Roel Lester Unavailable [phone] Sadaf Guzman Unavailable [phone] Allergies No Known Allergies Reason For Referral [...] atherosclerosis of arteries of lower limbs (disorder) ([id number] 7) Atherosclerosis of [place] artery of both lower extremities, with unspecified [...] 05/13/2025 Encounters Encounter Location Date Provider Diagnosis [facility] [address] [place] [address] 05/13/2025 Sadaf Guzman Atherosclerosis of [place] artery of both lower extremities, with unspecified presence of clinical manifestation I70.203 ; Tinea unguium B35.1 ; Pain in right toe(s) M79.674 and Pain in left toe(s) M79.675 Assessments Encounter Date Diagnosis (ICD Code) Assessment Notes Treatment Notes Treatment Clinical Notes Section Notes 05/13/2025 Tinea unguium (ICD-10 - B35.1) 05/13/2025 Atherosclerosis of [place] artery of both lower extremities, with unspecified presence of clinical manifestation (ICD-10 - I70.203) 05/13/2025 Pain in right toe(s) (ICD-10 - M79.674) 05/13/2025 Pain in left toe(s) (ICD-10 - M79.675) Plan Of Treatment Pending Test Test Name Order Date *Liver Function Test (LFT) 06/05/2012 X ray : Foot, right 3V 05/07/2012 X ray : Foot, right 3V 06/17/2023 83495-[id number] NAIL, 6 OR MORE 06/25/2023 44622-SRJPHPT NAIL, 6 OR MORE 03/13/2022 36759-EJJDSNZ NAIL, 6 OR MORE 09/24/2023 03241- Debride <25 sq cm 09/24/2023 74281- Debride <25 sq cm 06/25/2023 42832-VTFA SKIN LESIONS, OVER 4 09/24/19 24 95369-AWWQ SKIN LESIONS, 2 TO 4 06/25/20 23 16948, J0702- Neuroma/Injection 06/05/20 12 Insurance Providers Payer Name Payer Address Payer Phone Subscriber Number Group Number Insured Name Patient Relationship to Insured Coverage Start Date Coverage End Date A[employer] Medicare Complete [address] [address] [place] [address] [id number] Nella Garcia Self - patient is the insured Medical (General) History Medical History History ICD Code headaches/migraines measles mumps chicken pox Surgical History Surgery Date(Month/Year) hysterectomy tumor removal
--- OUTSIDE RECORDS SUMMARY | 2025-08-03 12:13 | XMS_ITS ---
Author Organization Unknown ENCOUNTERS Encounter Performer Location Date Diagnosis Diagnosis Status Emergency [address] [address] [phone] [facility] Pre Admit [address] [phone] Emergency [address] [phone] [facility] *Note: Encounters from your own facility or health system may be excluded. Allergies, Adverse Reactions, Alerts Allergen Type Severity Identification Date Medications Name Date Quantity Days Supplied GPI Number
[2025-08-03 13:48] LABS: MANUAL DIFF FLAG NO
[2025-08-03 14:00] LABS: Hematocrit 42.9 % (37.0-47.0); Hemoglobin 13.7 g/dl (12.0-16.0); Mean Corpuscular Hemoglobin 29.7 pg (27.0-33.0); Mean Corpuscular Volume 93.1 fL (80.0-98.0); Red Blood Count 4.61 X10*6/uL (4.20-5.50); White Blood Count 6.7 X10*3/uL (4.8-10.8)
[2025-08-03 14:01] LABS: Imm Gran Abs Auto 0.02 X10*3/uL (0.00-0.03); Imm Gran Pct Auto 0.3 % (0.0-0.4); Lymphocytes Absolute Auto 1.8 X10*3/uL (1.2-4.9); Mean Corpuscular HGB Conc 31.9 g/dl (31.0-35.0); NRBC Abs Auto 0.000 X10*3/uL (0.0-0.012); NRBC Pct Auto 0.0 /100WBC (0.0-0.2); Platelet Count 229 X10*3/uL (160-400)
[2025-08-03 14:09] LABS: Appearance Urine Clear; Glucose Urine UA Negative (Negative); PH 6.5 (5.0-9.0); Specific Gravity - Urine 1.010 (1.005-1.025); UMIC TRIGGER UACC YES
[2025-08-03 14:51] LABS: Alanine Aminotransferase 7 U/L (0-31); Albumin Level 4.1 g/dL (3.5-5.0); Alkaline Phosphatase 79 U/L (39-117); Anion Gap 11 (12-20); Aspartate Amino Transferase 21 U/L (5-31); Blood Urea Nitrogen 14 mg/dL (9-16); Calcium 9.4 mg/dL (8.4-10.2); Carbon Dioxide 28 mmol/L (22-29); Chloride 107 mmol/L (96-108); Cholesterol 201 mg/dL (<200); Estimated Glomerular Filt Rate 51; HDL Cholesterol 57 mg/dL (>40); Potassium 4.3 mmol/L (3.3-5.1); Sodium 142 mmol/L (135-145); Total Protein 7.0 g/dL (6.5-8.0); Triglycerides 97 mg/dL (<150)
== END 2025-08-03 09:31 ==
LOC: HO.HMGCLDS 09:30
PROVIDERS: PCP Nurse Practitioner Family; Visit Provider Nurse Practitioner Family
DX: E78.5 Hyperlipidemia, unspecified (principal); Z78.0 Asymptomatic menopausal state; Z13.21 Encounter for screening for nutritional disorder
CPT/HCPCS: 36415; 80053; 80061; 81001; 81003; 82306; 84443; 85025